=== PATIENT | female | born 1950 | race Caucasian/White ===

== ENCOUNTER → 2025-07-25 | Outpatient (CLI) | payer MEDICARE, BC, OTHER, SELFPAY ==
--- NOTE | 2025-07-25 11:47 | BD_ITS ---
PROCEDURE: DEXA BONE DENSITY STUDY 07/25/2025 REASON FOR EXAM: OSTEOPOROSIS F, age 75 y/o . Postmenopausal screening. TECHNIQUE: Procedure Code: BDDBD Modality: DX Procedure: DEXA BONE DENSITY STUDY COMPARISON: None FINDINGS: BMD and T-SCORES Lumbar spine: 0.874 g/cm2, T-score -1.6 Levels: L1 through L4 Change from prior: . Left femoral neck: 0.518 g/cm2, T-score -3.0 Femoral neck comparison data not recommended for monitoring change. Prior T-score Left total hip: 0.656 g/cm2, T-score -2.3 Change from prior: . Right femoral neck: 0.513 g/cm2, T-score -3.0 Femoral neck comparison data not recommended for monitoring change. Prior T-score Right total hip: 0.640 g/cm2, T-score -2.5 Change from prior: . The World Health Organization has defined the following categories based on bone density: Normal bone density: T-score equal to or greater than -1.0 Osteopenia: T-score between -1.0 and -2.5 Osteoporosis: T-score equal to or less than -2.5 FRAX (or Comparable) Fracture Risk Assessment: 10 Year Probability of Fracture: Major Osteoporotic Fracture: 29% Hip Fracture: 11% (Note: FRAX is not to be reported in setting of normal range bone density, osteoporosis on DEXA, known history of osteoporosis, prior osteoporotic hip or vertebral fracture, or for any patient undergoing pharmacological treatment for bone loss.) The National Osteoporosis Foundation (NOF) recommends pharmacological treatment for patients with a FRAX 10-year risk of 3% or higher for a hip fracture, or 20% or higher for a major osteoporotic fracture, to prevent osteoporosis and reduce fracture risk. The patient does meet the pharmacological treatment recommendations for prevention of osteoporosis. BD/Dexa Bone Density Study IMPRESSION: OSTEOPOROSIS. Recommend follow-up as clinically warranted. Reading Location: [id number]
== END | disposition home or self-care (01) ==
LOC: OPBD 11:41
PROVIDERS: PCP Family Medicine; Referring Provider Student in an Organized Health Care Education/Training Program; Visit Provider Student in an Organized Health Care Education/Training Program
DX: M81.0 Age-related osteoporosis without current pathological fracture (principal)
CPT/HCPCS: 77080